=== PATIENT | male | born 1965 | race Caucasian/White ===

== ENCOUNTER 2017-09-13 10:04 | Outpatient (CLI) | payer OTHER ==
--- NOTE | 2017-09-13 12:45 | MRI ---
MRI OF THE LUMBAR SPINE WITHOUT CONTRAST: HISTORY: History of chronic back pain for years that has gotten worse over the past three weeks that radiates down the right leg and hip. TECHNIQUE: Multiplanar, multisequence MR images were obtained of the lumbar spine without contrast. FINDINGS: Mild generalized disk desiccation is seen. The vertebral bodies demonstrate normal height and alignm ent without fracture or subluxation. The conus medullaris terminates normally at T12-L1. The prever tebral and paraspinal soft tissues are unremarkable. T12-L1: Unremarkable. L1-L2: A minimal disk osteophyte complex is seen. Mild bilateral posterior facet arthrosis. No yumiko tral canal stenosis. No neural foraminal stenosis. L2-L3: A small disk osteophyte complex is associated with high T2 signal, which may represent an sherri ular tear. Mild bilateral posterior facet arthrosis. No significant central canal stenosis. Mild b ilateral neural foraminal stenosis. L3-L4: A small disk osteophyte complex is seen. Mild bilateral posterior facet arthrosis. No centr al canal stenosis. Moderate right and mild left neural foraminal stenosis. L4-L5: A minimal disk osteophyte complex is seen. No posterior facet arthrosis. No neural foramina or central canal stenosis. L5-S1: Unremarkable. IMPRESSION: Mild degenerative changes of the lumbar spine, as above. POS: VINNIE
--- NOTE | 2017-09-13 12:59 | RAD ---
THREE VIEWS LUMBOSACRAL SPINE: HISTORY: Chronic back pain for years that has gotten worse recently. FINDINGS: Three views lumbosacral spine show normal height and alignment of the vertebral bodies and interverte bral disks without fracture or subluxation. Small osteophytes are seen throughout the lumbar spine. No significant posterior facet arthrosis is appreciated. IMPRESSION: Mild degenerative changes of the lumbar spine without acute osseous abnormality. POS: VINNIE
== END 2017-09-13 10:05 | disposition home or self-care (01) ==
LOC: SCSMRI 10:04
PROVIDERS: ATTEND Neurological Surgery
DX: M47.26 Other spondylosis with radiculopathy, lumbar region (principal)
CPT/HCPCS: 72100; 72148

== ENCOUNTER 2017-10-04 16:50 | Outpatient (CLI) | payer OTHER ==
[2017-10-04 17:26] LABS: Hemoglobin 14.9 g/dL (14.0-18.0); Mean Corpuscular HGB CONC 32.6 g/dL (32.0-36.0); Mean Corpuscular Hemoglobin 30.2 pg (27.0-31.0); Mean Corpuscular Volume 92.6 fl (80.0-94.0); Mean Platelet Volume 8.6 fL (7.4-10.4); Platelet Count 259 thou/uL (130-400); RBC Distribution Width 11.6 % (11.5-14.5); Red Blood Cell (RBC) Count 4.94 mill/uL (4.70-6.10); White Blood Cell (WBC) Count 5.4 thou/uL (4.8-10.8)
[2017-10-04 17:52] LABS: Anion Gap 12 mmol/L (10-20); BUN (Urea Nitrogen) 17 mg/dL (8.9-20.6); Calc. Creatinine Clearance 0 mL/min (70-130); Calcium 9.7 mg/dL (7.8-10.44); Carbon Dioxide 27 mmol/L (22-29); Chloride 104 mmol/L (98-107); Estimated GFR-MDRD 86; Glucose 85 mg/dL (70-105); Potassium 3.8 mmol/L (3.5-5.1); Sodium 139 mmol/L (136-145)
== END 2017-10-04 16:51 | disposition home or self-care (01) ==
LOC: LABBT 16:50
PROVIDERS: ATTEND Neurological Surgery
DX: Z01.812 Encounter for preprocedural laboratory examination (principal); M54.16 Radiculopathy, lumbar region
CPT/HCPCS: 80048; 85027

== ENCOUNTER 2017-10-11 10:01 | Day surgery (SDC) | payer OTHER ==
[2017-10-04 17:16] VITALS: BMI 25.7
[2017-10-11] MEDS ORDERED: CEFAZOLIN/Water 2 GM/20 ML SYRINGE ONE (11:21)
[2017-10-11] MEDS ORDERED: Ondansetron HCl/PF 4 MG/2 ML Vial ONE ×3 (12:15→16:48)
[2017-10-11] MEDS ORDERED: Famotidine/PF 20 mg/2ml Vial ONE (12:15)
[2017-10-11] MEDS ORDERED: Fentanyl 250 MCG/5 ML VIAL ONE (12:15)
[2017-10-11] MEDS ORDERED: HYDROmorphone 0.5 MG/0.5 ML SYRINGE ONE (13:58)
--- NOTE | 2017-10-11 14:01 | OP ---
DATE OF PROCEDURE: 10/11/2017 SURGEON: Tito Treviño M.D. SLURRY TANK TENDER: [employer] PROCEDURE: Right L3-4 far lateral microdiskectomy. PROCEDURE IN DETAIL: The patient was brought to the operating room and intubated. He was rolled in the prone position on gel-filled chest rolls. Incision was then made exposing right L3 and right L4, and our level was confirmed by x-ray. We performed a right L3 laminectomy, facetectomy, identified the medial neural elements in the right L3 nerve root. Beneath this was an extruded disk herniation as well as a bulging lateral disk herniation. These were removed completely and a complete decompres guilherme of right L3 was achieved. The wound was extensively irrigated, immaculate hemostasis was secure d. Vancomycin powder was applied and the wound closed in anatomic layers.
[2017-10-11] MEDS ORDERED: Dexamethasone 20 MG/5 ML VIAL ONE (16:48)
[2017-10-11] MEDS ORDERED: Ketorolac Tromethamine 30 MG/ML VIAL ONE (16:48)
[2017-10-11] MEDS ORDERED: Lidocaine 1% PF 5 ML VIAL ONE (16:48)
[2017-10-11] MEDS ORDERED: ePHEDrine/0.9% NaCl/PF SYRINGE 50 mg/10 ml ONE (16:48)
[2017-10-11] MEDS ORDERED: Glycopyrrolate 0.2 MG/ML 5 ML SYRINGE ONE (16:48)
[2017-10-11] MEDS ORDERED: Propofol 200 MG/20 ML VIAL ONE (16:48)
== END 2017-10-11 16:25 | disposition home or self-care (01) ==
LOC: SDC 10:01
PROVIDERS: ATTEND Neurological Surgery
PROC: 0ST20ZZ Resection of Lumbar Vertebral Disc, Open Approach (ICD-10-PCS; principal; 2017-10-11)
DX: M54.16 Radiculopathy, lumbar region (principal)
CPT/HCPCS: 76000; 96374; J0131; J1100; J1170; J1885; J2001; J2405; J2704; J3010; J3370; S0028